=== PATIENT | male | born 1990 | race Caucasian/White ===

== ENCOUNTER 2017-05-01 05:10 | Emergency (ER) | payer OTHER ==
[2017-05-01] MEDS ORDERED: SODIUM CHLORIDE 0.9% 1,000 ML IV ONE (05:22)
[2017-05-01] MEDS ORDERED: diphenhydrAMINE INJ 50 MG/ML VIAL IVP STA (05:23)
[2017-05-01] MEDS ORDERED: METOCLOPRAMIDE 10 MG/2 ML VIAL IVP STA (05:23)
[2017-05-01] MEDS ORDERED: METOCLOPRAMIDE 10 MG/2 ML VIAL ONE (05:47)
[2017-05-01] MEDS ORDERED: diphenhydrAMINE INJ 50 MG/ML VIAL ONE (05:47)
--- NOTE | 2017-05-01 06:06 | ED Physician Documentation ---
PD HPI HEADACHE - Stated complaint Stated Complaint: HEADACHE,NAUSEA,DIZZY - Chief complaint Chief Complaint: Neuro - History obtained from History obtained from: Patient - History of Present Illness Timing - onset: How many days ago (2) Timing - details: Gradual onset, Still present Worst headache ever?: Worst headache ever? (no) Location: Front Quality: Aching Associated symptoms: Nausea. No: Fever, Stiff neck, Vomiting, Weakness, Syncope , Seizure Improved by: Rest, Dark room Contributing factors: No: Anticoagulated, Possible carbon monoxide, Recent illness Similar symptoms before: Work up / diagnostics, Treatment Recently seen: Not recently seen - Additional information Additional information: Patient is a 26 year old male presenting to the emergency department for headache. Patient states that he has migraines that he normally takes ibuprofen for. Patient states that for the last few days he has had a headache and felt a bit dizzy. Patient states that he tried taking ibuprofen but it didn 't work. Review of Systems Constitutional: denies: Fever, Chills, Myalgias Eyes: reports: Photophobia. denies: Loss of vision, Discharge, Irritation Ears: denies: Loss of hearing, Ear pain, Drainage/discharge, Foreign body Nose: reports: Sinus pressure / pain. denies: Rhinorrhea / runny nose, Congestion Throat: denies: Dental pain / toothache, Oral lesions / sores Cardiac: reports: Chest pain / pressure Respiratory: denies: Dyspnea, Cough, Wheezing GI: reports: Nausea. denies: Abdominal Pain, Vomiting, Constipation, Diarrhea : denies: Dysuria, Frequency, Hesitancy Skin: denies: Rash, Lesions Musculoskeletal: denies: Neck pain, Back pain, Extremity pain, Joint pain Neurologic: reports: Generalized weakness, Headache. denies: Focal weakness, Numbness, Syncope, Head injury, LOC Immunocompromised: denies: Immunocompromised PD PAST MEDICAL HISTORY - Past Medical History Past Medical History: Yes Endocrine/Autoimmune: Other Other Past Medical History: G6PD - Past Surgical History Past Surgical History: No - Allergies Allergies/Adverse Reactions: Allergies Allergy/AdvReac Type Severity Reaction Status Date / Time acetaminophen Allergy Severe Unknown Verified 05/01/17 05:29 - Social History Does the pt smoke?: No Smoking Status: Never smoker Does the pt drink ETOH?: Yes Does the pt have substance abuse?: No - Immunizations Immunizations are current?: Yes - POLST Patient has POLST: No PD ED PE NORMAL - Vitals Vital signs reviewed: Yes - General General: Alert and oriented X 3, No acute distress - HEENT HEENT: Atraumatic, PERRL, Moist mucous membranes, Pharynx benign, Dentition benign - Neck Neck: Supple, no meningeal sign, No bony TTP - Cardiac Cardiac: RRR, No murmur - Respiratory Respiratory: No respiratory distress, Clear bilaterally - Abdomen Abdomen: Soft, Non tender, Non distended - Derm Derm: Normal color, Warm and dry, No rash - Extremities Extremities: No deformity, No tenderness to palpate, Normal ROM s pain, No edema - Neuro Neuro: Alert and oriented X 3, 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 IV access was gained and patient was treated with fluids, reglan and benadryl. Departure - Departure Disposition: 01 Home, Self Care Clinical Impression: Headache Condition: Good Instructions: ED Cephalgia Unspecified Follow-Up: primary,care provider [Other] Comments: You should try to stay well hydrated and get plenty of rest over alexys next few days. You should follow up with your base doctor if your symptoms dont improve. You may return to the emergency department at any time for new, worsening or uncontrollable symptoms. Forms: Activity restrictions
[2017-05-01 06:45] VITALS: BP 122/73
== END 2017-05-01 06:45 | disposition home or self-care (01) ==
LOC: ED 05:10
DX: R51 Headache (principal); R11.2 Nausea with vomiting, unspecified; R42 Dizziness and giddiness
CPT/HCPCS: 96374; 96375; 99283

== ENCOUNTER 2018-03-02 18:49 | Emergency (ER) | payer OTHER ==
[2018-03-02 19:44] LABS: BILIRUBIN,URINE NEGATIVE (NEGATIVE); GLUCOSE, URINE (UA) NEGATIVE (NEGATIVE); KETONES,URINE (UA) NEGATIVE (NEGATIVE); LEUKOCYTE ESTERASE, URINE NEGATIVE (NEGATIVE); NITRITE,URINE NEGATIVE (NEGATIVE); OCCULT BLOOD,URINE TRACE-INTA (NEGATIVE); PROTEIN,URINE NEGATIVE (NEGATIVE); UROBILINOGEN,URINE 0.2 (NORMAL) E.U./dL (NORMAL)
[2018-03-02 19:45] LABS: CLARITY,URINE CLEAR (CLEAR)
--- NOTE | 2018-03-02 19:53 | ED Physician Documentation ---
History of Present Illness - Stated complaint Stated Complaint: MALE - Chief complaint Chief Complaint: General - History obtained from History obtained from: Patient, Family - History of Present Illness Timing: Other (6 months) Pain level max: 8 Pain level now: 7 Improved by: nothing Worsened by: palpation, walking, ejaculation - Additonal information Additional information: Patient is a 27-year-old male who presents to the emergency department with right testicular pain for the past 6 months. This been gradually worsening over that time. He did have intercourse with someone outside of his marriage just prior to symptoms starting. Concerned about possible STD exposure. He was seen at [facility] 3 days ago and started on Levaquin for possible epididymitis. States had laboratory testing and a ultrasound at that point which were normal per pt. Review of Systems Constitutional: denies: Fever, Chills Ears: denies: Ear pain Nose: denies: Rhinorrhea / runny nose, Congestion GI: denies: Nausea, Vomiting, Diarrhea : denies: Dysuria, Frequency, Hesitancy, Discharge, Testicular mass Skin: denies: Rash Musculoskeletal: denies: Neck pain, Back pain PD PAST MEDICAL HISTORY - Past Medical History Past Medical History: No Endocrine/Autoimmune: Other - Past Surgical History Past Surgical History: No - Present Medications Home Medications: Ambulatory Orders Medication Instructions Recorded Confirmed Doxycycline Hyclate 100 mg PO BID #20 tablet 03/02/18 Levofloxacin [Levaquin] 500 mg PO 03/02/18 oxyCODONE [Roxicodone] 5 mg PO Q4-6H PRN #10 tablet 03/02/18 - Allergies Allergies/Adverse Reactions: Allergies Allergy/AdvReac Type Severity Reaction Status Date / Time acetaminophen Allergy Severe Unknown Verified 03/02/18 18:54 - Social History Does the pt smoke?: No Smoking Status: Never smoker Does the pt drink ETOH?: Yes Does the pt have substance abuse?: No - Immunizations Immunizations are current?: Yes - POLST Patient has POLST: No PD ED PE NORMAL - Vitals Vital signs reviewed: Yes - General General: Alert and oriented X 3, No acute distress - HEENT HEENT: Moist mucous membranes - Neck Neck: Supple, no meningeal sign - Cardiac Cardiac: RRR - Respiratory Respiratory: No respiratory distress, Clear bilaterally - Abdomen Abdomen: Soft, Non tender, Non distended - Male Male : Other (Mild tenderness over the right epididymis. No testicular tenderness or swelling. No mass. No inguinal hernia present. No penile discharge. No inguinal lymphadenopathy. Normal testicular lie and cremasteric reflex) - Derm Derm: Warm and dry - Neuro Neuro: Alert and oriented X 3 Results - Vitals Vitals: Vital Signs - 24 hr 03/02/18 03/02/18 18:51 20:45 Temperature 36.8 C Heart Rate 74 99 Respiratory 16 20 Rate Blood Pressure 148/94 H 141/89 H O2 Saturation 99 96 Oxygen O2 Source Room air - Labs Labs: Laboratory Tests 03/02/18 19:40 Urine Color YELLOW Urine Clarity CLEAR Urine pH 6.0 Ur Specific [place] 1.025 Urine Protein NEGATIVE Urine Glucose (UA) NEGATIVE Urine Ketones NEGATIVE Urine Occult Blood TRACE-INTA Urine Nitrite NEGATIVE Urine Bilirubin NEGATIVE Urine Urobilinogen 0.2 (NORMAL) Ur Leukocyte Esterase NEGATIVE Ur Microscopic Review NOT INDICATED Urine Culture Comments NOT INDICATED PD MEDICAL DECISION MAKING - ED course Complexity details: reviewed results, re-evaluated patient, considered differential, d/w patient ED course: I did review the results from [facility] and confirmed the negative ultrasound. They did send a urine for gonorrhea and chlamydia. We will change his Levaquin to doxycycline and he was given a dose of Rocephin here. We will also prescribe pain medication for home. We will have him follow-up with his doctor for further evaluation and care. If he fails to improve, would likely need a urology referral. No evidence of intermittent torsion clinically. Patient counseled regarding signs and symptoms for which I believe and urgent re -evaluation would be necessary. Patient with good understanding of and agreement to plan and is comfortable going home at this time This document was made in part using voice recognition software. While efforts are made to proofread this document, sound alike and grammatical errors may occur. - Sepsis Event Vital Signs: Vital Signs - 24 hr 03/02/18 03/02/18 18:51 20:45 Temperature 36.8 C Heart Rate 74 99 Respiratory 16 20 Rate Blood Pressure 148/94 H 141/89 H O2 Saturation 99 96 Oxygen O2 Source Room air Departure - Departure Disposition: 01 Home, Self Care Clinical Impression: Testicular pain, right Condition: Good Instructions: ED Testicular Pain UKO Follow-Up: your,doctor in 3 days [Other] Prescriptions: Doxycycline Hyclate 100 mg PO BID #20 tablet oxyCODONE [Roxicodone] 5 mg PO Q4-6H PRN #10 tablet PRN Reason: pain Comments: Return if you worsen. The cause of your symptoms is unclear today. You should follow up with urology as well. Your primary care provider can refer you to urology. Stop the levaquin and start the doxycycline tomorrow. Do not drink alcohol or drive while on narcotic pain medicine. Note that many narcotic pain relievers also contain tylenol/acetaminophen. Please ensure that your total dose of acetaminophen from all sources does not exceed 3 grams (3000mg) per day. You may constipated on this medication, take a stool softener such as "Colace" twice a day while you are on it. Also recommend a plei-[id number] laxative such as senna or MiraLAX any day that you do not have a bowel movement. If you received narcotic pain medication in the emergency department, do not drive or operate machinery for the next 24 hours. Discharge Date/Time: 03/02/18 20:46
[2018-03-02] MEDS ORDERED: oxyCODONE 5 MG TABLET PO STA (19:57)
[2018-03-02] MEDS ORDERED: DOXYCYCLINE 100 MG TABLET PO STA (20:14)
[2018-03-02] MEDS ORDERED: LIDOCAINE 1% 2 ML VIAL SUBQ ONE (20:14)
[2018-03-02] MEDS ORDERED: cefTRIAXone 1 GM VIAL IM STA (20:14)
[2018-03-02 20:46] VITALS: BP 141/89
== END 2018-03-02 20:46 | disposition home or self-care (01) ==
LOC: ED 18:49
DX: N50.811 Right testicular pain (principal)
CPT/HCPCS: 81003; 96372; 99283; A9270; 81001; 87086

== ENCOUNTER 2018-07-19 16:07 | Emergency (ER) | payer OTHER ==
[2018-07-19 16:15] VITALS: BP 145/84
[2018-07-19] MEDS ORDERED: levoFLOXacin 250 MG TABLET PO STA (18:07)
--- NOTE | 2018-07-19 18:09 | ED Physician Documentation ---
History of Present Illness - Stated complaint Stated Complaint: MALE /COUGH - Chief complaint Chief Complaint: General - History obtained from History obtained from: Patient - History of Present Illness Timing: Other (In February he had epididymitis. He says he did recover completely after a course of Levaquin which was 6 twisted doxycycline. He was tested several times for STDs, all of them were negative. Over the last week he has had gradual onset mild Right testicular pain that is worse with walking. He has not nauseous. He denies abdominal pain. He also has a nonproductive cough for the last 4 days without fevers.) Review of Systems Ten Systems: 10 systems reviewed and negative Constitutional: denies: Fever, Chills Cardiac: denies: Chest pain / pressure, Palpitations Respiratory: denies: Dyspnea, Cough GI: denies: Abdominal Pain, Nausea, Vomiting PD PAST MEDICAL HISTORY - Past Medical History Endocrine/Autoimmune: Other - Past Surgical History Past Surgical History: No - Present Medications Home Medications: Ambulatory Orders Medication Instructions Recorded Confirmed Levofloxacin [Levaquin] 500 mg PO DAILY #14 tablet 07/19/18 - Allergies Allergies/Adverse Reactions: Allergies Allergy/AdvReac Type Severity Reaction Status Date / Time acetaminophen Allergy Severe Unknown Verified 07/19/18 16:15 - Social History Does the pt smoke?: No Smoking Status: Never smoker Does the pt drink ETOH?: Yes Does the pt have substance abuse?: No - Immunizations Immunizations are current?: Yes - POLST Patient has POLST: No PD ED PE NORMAL - Vitals Vital signs reviewed: Yes - General General: Alert and oriented X 3, No acute distress - Neck Neck: Supple, no meningeal sign, No bony TTP - Cardiac Cardiac: RRR, No murmur - Respiratory Respiratory: No respiratory distress, Clear bilaterally - Abdomen Abdomen: Normal bowel sounds, Soft, Non tender - Male Male : Other (Mild R testicular TTP but no swelling. Normal cremaster reflexes, normal lie. No hernia.) - Neuro Neuro: Alert and oriented X 3 Results - Vitals Vitals: Vital Signs - 24 hr 07/19/18 16:12 Temperature 36.1 C L Heart Rate 68 Respiratory 18 Rate Blood Pressure 145/84 H O2 Saturation 99 Oxygen O2 Source Room air PD MEDICAL DECISION MAKING - ED course ED course: 27-year-old gentleman with recurrent epididymitis. He has had a confirmatory ultrasound in the past per him. Pain is mild. Otherwise inconsistent with torsion. Departure - Departure Disposition: 01 Home, Self Care Clinical Impression: Acute epididymitis Condition: Good Record reviewed to determine appropriate education?: Yes Instructions: Epididymitis Dc Prescriptions: Levofloxacin [Levaquin] 500 mg PO DAILY #14 tablet Comments: Call your doctor to arrange a follow-up appointment, make the next available appointment. In the interim, return anytime if worse or if new symptoms develop. Your blood pressure was elevated today on check into the emergency department. This does not mean that you have hypertension, it is a common phenomenon to come to the emergency department and have elevated blood pressure. I recommend that you see your primary care physician within the week to have it rechecked when you are feeling better.
== END 2018-07-19 18:18 | disposition home or self-care (01) ==
LOC: ED 16:07
DX: N45.1 Epididymitis (principal); R03.0 Elevated blood-pressure reading, without diagnosis of hypertension
CPT/HCPCS: 99283; A9270

== ENCOUNTER 2019-09-10 10:56 | Emergency (ER) | payer OTHER ==
[2019-09-10 11:04] VITALS: BP 171/95
--- NOTE | 2019-09-10 12:53 | ED Physician Documentation ---
History of Present Illness - Stated complaint Stated Complaint: COUGH/SINUS PRESSURE - Chief complaint Chief Complaint: General - History obtained from History obtained from: Patient - History of Present Illness Timing: Yesterday (Started coughing yesterday and today has had fevers chills and body aches as well as congestion and retro-orbital headache. No recent travel. No health, conditions except for G6PD deficiency.) Review of Systems Constitutional: reports: Chills, Myalgias, Fatigue. denies: Fever Ears: denies: Ear pain Nose: reports: Rhinorrhea / runny nose Throat: denies: Sore throat Respiratory: reports: Cough. denies: Dyspnea GI: denies: Nausea, Diarrhea PD PAST MEDICAL HISTORY - Past Medical History Endocrine/Autoimmune: Other - Past Surgical History Past Surgical History: No - Present Medications Home Medications: Ambulatory Orders Medication Instructions Recorded Confirmed Levofloxacin [Levaquin] 500 mg PO DAILY #14 tablet 07/19/18 Ibuprofen [Motrin] 800 mg PO Q8H PRN #30 tablet 09/10/19 - Allergies Allergies/Adverse Reactions: Allergies Allergy/AdvReac Type Severity Reaction Status Date / Time acetaminophen Allergy Severe Unknown Verified 09/10/19 11:00 - Social History Does the pt smoke?: No Smoking Status: Never smoker Does the pt drink ETOH?: Yes Does the pt have substance abuse?: No - Immunizations Immunizations are current?: Yes - POLST Patient has POLST: No PD ED PE NORMAL - Vitals Vital signs reviewed: Yes - General General: Alert and oriented X 3, No acute distress - HEENT HEENT: PERRL, EOMI, Ears normal, Moist mucous membranes, Pharynx benign - Neck Neck: Supple, no meningeal sign, No bony TTP, No adenopathy - Cardiac Cardiac: RRR, No murmur - Respiratory Respiratory: No respiratory distress, Clear bilaterally - Abdomen Abdomen: Non tender - Back Back: No CVA TTP, No spinal TTP - Derm Derm: Normal color, Warm and dry - Neuro Neuro: Alert and oriented X 3, Normal speech Results - Vitals Vitals: Vital Signs - 24 hr 09/10/19 11:00 Temperature 37.2 C Heart Rate 97 Respiratory 16 Rate Blood Pressure 171/95 H O2 Saturation 98 Oxygen O2 Source Room air PD MEDICAL DECISION MAKING - ED course ED course: This is a 28-year-old gentleman, 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 I discussed with him my practice pattern of not testing or treating for the flu and young healthy people as the risk-benefit ratio of antiviral agents for uncomplicated influenza is at best at a position of equipoise. He is comfortable with this and mostly needs a work note. Departure - Departure Disposition: 01 Home, Self Care Clinical Impression: Viral syndrome Condition: Good Record reviewed to determine appropriate education?: Yes Instructions: ED Viral Syndrome Prescriptions: Ibuprofen [Motrin] 800 mg PO Q8H PRN #30 tablet PRN Reason: PAIN &/OR FEVER Comments: Call your doctor to arrange a follow-up appointment, make the next available appointment. In the interim, return anytime if worse or if new symptoms develop. Forms: Activity restrictions Discharge Date/Time: 09/10/19 13:05
== END 2019-09-10 13:05 | disposition home or self-care (01) ==
LOC: ED 10:56
DX: B34.9 Viral infection, unspecified (principal)
CPT/HCPCS: 99282; 99284

== ENCOUNTER 2020-10-31 21:36 | Outpatient (CLI) | payer OTHER | END 2020-10-31 21:37 | disposition home or self-care (01) | LOC: COV 21:36 | PROVIDERS: ATTEND Surgery | DX: Z01.812 Encounter for preprocedural laboratory examination (principal); L05.91 Pilonidal cyst without abscess; Z20.822 Contact with and (suspected) exposure to COVID-19 ==

== ENCOUNTER 2020-11-03 06:23 | Day surgery (SDC) | payer OTHER ==
[2020-11-03] MEDS ORDERED: ceFAZolin 2 GM/50 ML 2 GM/50 ML BAG IV ONE (07:04)
[2020-11-03] MEDS ORDERED: BUPIVACAINE 0.25% PF 30 ML VIAL ONE (07:05)
[2020-11-03] MEDS ORDERED: BUPIVACAINE 0.25% PF 30 ML VIAL SUBQ ONE ×2 (07:09→09:14)
[2020-11-03] MEDS ORDERED: KETOROLAC 30 MG/ML VIAL ONE (07:11)
[2020-11-03] MEDS ORDERED: LIDOCAINE-MPF 2% 5 ML VIAL ONE (07:11)
[2020-11-03] MEDS ORDERED: ONDANSETRON 4 MG/2 ML VIAL ONE ×2 (07:11→11:03)
[2020-11-03] MEDS ORDERED: PROPOFOL 200 MG/20 ML VIAL IVP ONE ×2 (07:11→08:00)
[2020-11-03] MEDS ORDERED: DEXAMETHASONE 4 MG/ML VIAL ONE (07:11)
[2020-11-03] MEDS ORDERED: MIDAZOLAM 2 MG/2 ML VIAL ONE (07:11)
[2020-11-03] MEDS ORDERED: fentaNYL 100 MCG/2 ML VIAL ONE ×2 (07:11→08:05)
[2020-11-03] MEDS ORDERED: SUCCINYLCHOLINE 200 MG/10 ML VIAL ONE (07:12)
--- NOTE | 2020-11-03 07:23 | ANESTHESIA ---
Pre-Anesthesia VS, & Labs - Diagnosis pilonidal cyst - Procedure Pilonidal cystectomy Vital Signs: Temp Pulse Resp BP Pulse Ox 36.2 C L 85 16 145/85 H 96 11/03/20 06:54 11/03/20 06:54 11/03/20 06:54 11/03/20 06:54 11/03/20 06:54 Height: 5 ft 10 in Weight (kg): 110.8 kg Body Mass Index: 35.0 BMI Classification: Obese - NPO >8 hours - Lab Results Lab results reviewed: Yes Home Medications and Allergies Home Medications: Ambulatory Orders Clobetasol Propionate [Temovate] 1 applic TP PRN PRN 10/27/20 hydrOXYzine HCL [Hydroxyzine HCl] 25 mg PO QID PRN 10/27/20 Clobetasol Propionate [Temovate] 1 applic TP PRN PRN 10/27/20 hydrOXYzine HCL [Hydroxyzine HCl] 25 mg PO QID PRN 10/27/20 Allergies/Adverse Reactions: Allergies Allergy/AdvReac Type Severity Reaction Status Date / Time acetaminophen Allergy Severe Unknown Verified 09/10/19 11:00 Anes History & Medical History - Anesthetic History Anesthesia Complications: reports: No previous complications Family history of Anesthesia Complications: Denies Family history of Malignant Hyperthermia: Denies - Medical History Cardiovascular: reports: None Pulmonary: reports: None Gastrointestinal: reports: None Urinary: reports: None Musculoskeletal: reports: None Endocrine/Autoimmune: reports: Other Skin: reports: Eczema Smoking Status: Never smoker Other Past Medical History: G6PD with anemia Exam General: Alert, Oriented x3, Cooperative, No acute distress Dental: WNL Mouth Openin Fingerbreadth Neck Mobility: Normal Mallampati classification: II Respiratory: Lungs clear, Normal breath sounds, No respiratory distress, No accessory muscle use Cardiovascular: Regular rate, Normal S1, Normal S2, No murmurs Plan Anesthesia Type: General Consent for Procedure(s) Verified and Reviewed: Yes Code Status: Attempt Resuscitation ASA classification: 2-Mild systemic disease Is this case an emergency?: No
[2020-11-03] MEDS ORDERED: ePHEDrine 50 MG/ML VIAL IVP PRN (07:24)
[2020-11-03] MEDS ORDERED: METOCLOPRAMIDE 10 MG/2 ML VIAL IVP PRN (07:24)
[2020-11-03] MEDS ORDERED: MORPHINE 2 MG/ML CARPUJECT IVP PRN (07:24)
[2020-11-03] MEDS ORDERED: HYDROmorphone 0.5 MG/0.5 ML SYRINGE IVP PRN ×2 (07:24→09:55)
[2020-11-03] MEDS ORDERED: NALOXONE 0.4 MG/ML VIAL IVP PRN (07:24)
[2020-11-03] MEDS ORDERED: ATROPINE ABBOJECT 1 MG/10 ML SYRINGE IVP PRN (07:24)
[2020-11-03] MEDS ORDERED: ONDANSETRON 4 MG/2 ML VIAL IVP PRN ×2 (07:24→09:55)
[2020-11-03] MEDS ORDERED: fentaNYL 100 MCG/2 ML VIAL IVP PRN (07:24)
[2020-11-03] MEDS ORDERED: LACTATED RINGERS 1,000 ML IV SCH (08:00)
--- NOTE | 2020-11-03 09:47 | OPERATIVE REPORT ---
Operative Report - General Procedure Date: 11/03/20 Planned Procedure: 1. Pilonidal cystectomy 2. Wound washout 3. Rhomboid rotational reconstructive flap 4. Drain placement Pre-Op Diagnosis: Chronic recurrent pilonidal cyst; H/O prior I&D, multiple Procedure Performed: 1. Pilonidal cystectomy 2. Wound washout 3. Rhomboid rotational reconstructive flap 4. Drain placement Post Op Diagnosis: Same; Viable rhomboid rotational flap; no active infection - Procedure Note Primary Surgeon: Ja Secondary Surgeon: [place] Anesthesia Provider: Kirk Anesthesia Technique: General ET tube, Local Pathology: Pilonidal Cyst Estimated Blood Loss (mL): 20 Drain/Tube Type: Madi drain Indications: Recurrent pilonidal cyst/abscess. Findings: 1. Chronic scar tissue within cystic structure in the left superior lateral aspect of the gluteal cleft/sacrum. 2. Pilonidal sinus tract excised en bloc with area of chronic scar/fibrosis. 3. Rhomboid rotational flap harvested from the right buttock 4. Viable flap with no ischemic compromise. Complications: None - Other Other Information/Narrative: See pending operative note.
[2020-11-03] MEDS ORDERED: LACTATED RINGERS 1,000 ML IV ONE (10:03)
[2020-11-03] MEDS ORDERED: METOCLOPRAMIDE 10 MG/2 ML VIAL ONE (10:48)
[2020-11-03] MEDS: LACTATED RINGERS 1,000 ML IV SCH ×2 (12:00→15:42)
[2020-11-03] MEDS: oxyCODONE 5 MG TABLET PO PRN (12:02)
--- NOTE | 2020-11-03 15:02 | ANESTHESIA POST OP EVALUATION ---
Anesthesia Post Eval - Post Anesthesia Eval Vitals: Last Vital Signs Temp 36.8 C 11/03/20 12:20 Pulse 90 11/03/20 12:20 Resp 18 11/03/20 12:20 BP 112/70 11/03/20 12:20 Pulse Ox 97 11/03/20 12:20 CV Function Including HR & BP: positive: Stable Pain Control: positive: Satisfactory Nausea & Vomiting: positive: Negative Mental Status: positive: Patient Participates Respiratory Status: Airway Patent Hydration Status: Satisfactory Anesthesia Complications: positive: None
[2020-11-04] MEDS: LACTATED RINGERS 1,000 ML IV SCH (01:47)
[2020-11-04] MEDS: oxyCODONE 5 MG TABLET PO PRN (01:51)
[2020-11-04 08:16] VITALS: BP 136/79
== END 2020-11-04 08:45 | disposition home or self-care (01) ==
LOC: SDS 06:23 → MS2 11:12 → SDS 11-04 08:45
PROVIDERS: ATTEND Surgery
PROC: 0HX8XZZ Transfer Buttock Skin, External Approach (ICD-10-PCS; 2020-11-03)
PROC: 0JB90ZZ Excision of Buttock Subcutaneous Tissue and Fascia, Open Approach (ICD-10-PCS; principal; 2020-11-03 07:30)
DX: L05.91 Pilonidal cyst without abscess (principal); E66.9 Obesity, unspecified; Z68.35 Body mass index [BMI] 35.0-35.9, adult
CPT/HCPCS: 11772; 14301; 14302; A9270; J0330; J0690; J2765; J7120

== ENCOUNTER 2020-12-28 20:45 | Emergency (ER) | payer OTHER ==
--- NOTE | 2020-12-29 00:09 | ED Physician Documentation ---
History of Present Illness - Stated complaint Stated Complaint: LT LEG PX & SWELLING - Chief complaint Chief Complaint: Ext Problem - History obtained from History obtained from: Patient - History of Present Illness Timing: How many days ago (3-4) Pain level now: 3 Improved by: nothing Worsened by: palpation - Additonal information Additional information: c/o atraumatic left pretibial painful focal red swelling x 3-4 days. denies h/o similar symptoms Review of Systems Constitutional: reports: Reviewed and negative Skin: reports: Lesions Musculoskeletal: reports: Reviewed and negative PD PAST MEDICAL HISTORY - Past Medical History Cardiovascular: None Respiratory: None Endocrine/Autoimmune: Other GI: None : None HEENT: None Psych: Claustrophobia Musculoskeletal: None Derm: Eczema - Past Surgical History Past Surgical History: No - Present Medications Home Medications: Ambulatory Orders Medication Instructions Recorded Confirmed No Known Home Medications 12/28/20 12/28/20 - Allergies Allergies/Adverse Reactions: Allergies Allergy/AdvReac Type Severity Reaction Status Date / Time acetaminophen Allergy Severe Unknown Verified 09/10/19 11:00 - Social History Does the pt smoke?: No Smoking Status: Never smoker Does the pt drink ETOH?: Yes Does the pt have substance abuse?: No - Immunizations Immunizations are current?: Yes - POLST Patient has POLST: No PD ED PE NORMAL - Vitals Vital signs reviewed: Yes - General General: Alert and oriented X 3, No acute distress, Well developed/nourished - Extremities Extremities: Normal ROM s pain, No edema - Neuro Neuro: No motor deficit, No sensory deficit PD ED PE EXPANDED - Extremities TALIB LE visual: 1 - swelling (minimally raised, poorly maeginated erythema without confluence. not hot to touch, no fluctuance, minimal tenderness to palpation,) Results - Vitals Vitals: Oxygen O2 Source Room air PD MEDICAL DECISION MAKING - ED course Complexity details: considered differential, d/w patient ED course: solitary LLE pretibial lesion, erythematous but faint margins, minimally raised, lack of confluence, not fluctuant nor firm to touch. doubt cellulitis, and s olitary lesion makes erythema nodosum unlikely. no emergent testing indicted at this time, encouraged to follow up with PMD for reevaluation in next few days Departure - Departure Disposition: 01 Home, Self Care Clinical Impression: Leg pain Qualifiers: Laterality: left Qualified Code(s): M79.605 - Pain in left leg Condition: Good Instructions: ED Leg Swelling Unilateral, ED Symptoms No Dx Discharge Date/Time: 12/29/20 00:32
[2020-12-29 00:33] VITALS: BP 139/79
--- NOTE | 2020-12-29 09:03 | Ultrasound Report ---
PROCEDURE: Duplex Ext Veins Left INDICATIONS: LLE swelling 1 week post op TECHNIQUE: Real-time imaging, as well as color and pulse Doppler interrogation, were performed of the lower extr emity deep veins from the inguinal ligament to the popliteal fossa. COMPARISON: None. FINDINGS: The deep veins are normally compressible, and free of intraluminal thrombus. Color and pu lse Doppler demonstrate normal phasic intraluminal flow. There is normal augmentation response to di stal compression maneuver. IMPRESSION: No evidence of deep vein thrombosis involving the left lower extremity. Reviewed by: Gill Arce MD, PhD on 12/29/2020 9:01 AM PDT Approved by: Gill Arce MD, PhD on 12/29/2020 9:01 AM PDT Station ID: [id number]
== END 2020-12-29 00:32 | disposition home or self-care (01) ==
LOC: ED 20:45
DX: M79.605 Pain in left leg (principal)
CPT/HCPCS: 99283; 99284

== ENCOUNTER 2022-10-17 17:38 | Outpatient (CLI) | payer OTHER ==
--- NOTE | 2022-10-18 09:29 | MRI Report ---
PROCEDURE: BRAIN WO INDICATIONS: DIZZINESS TECHNIQUE: Noncontrast axial T1 spin echo, axial T2 fast spin echo, sagittal and axial FLAIR, coronal T2 fast sp in echo, axial gradient echo, axial diffusion and ADC through the brain. COMPARISON: None. FINDINGS: Image quality: Excellent. CSF Spaces: Basal cisterns are patent. No extra-axial fluid collections. Ventricles are normal in size and shape. Brain: No intracranial masses or acute hemorrhage. There is a 15 mm diameter region of low-grade ec ho signal intensity within the right frontoparietal lobe junction, suggestive of a focus of remote he morrhage. Hagan/white matter interface is normal. Brainstem appears normal. Diffusion-weighted image s demonstrate no acute ischemic insult. No chronic ischemic insults. Normal intravascular flow void s are present. Skull and face: Calvarium has normal marrow signal. Orbits appear normal. Sinuses: Small right maxillary sinus retention cyst. Sinuses and mastoids are otherwise clear. IMPRESSION: 1. No acute process. No recent infarct. 2. 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 Reviewed by: Migue Martinez MD on 10/18/2022 9:28 AM PST Approved by: Migue Martinez MD on 10/18/2022 9:28 AM PST Station ID: [id number]
== END 2022-10-17 17:39 | disposition home or self-care (01) ==
LOC: DI 17:38
PROVIDERS: ATTEND Psychiatry & Neurology Neurology
DX: R42 Dizziness and giddiness (principal); R55 Syncope and collapse; H91.91 Unspecified hearing loss, right ear; M54.81 Occipital neuralgia

== ENCOUNTER 2023-04-13 20:53 | Emergency (ER) | payer OTHER ==
[2023-04-13] MEDS ORDERED: ALBUTEROL 1 PUFF INH STA (21:21)
--- NOTE | 2023-04-13 21:25 | ED Physician Documentation ---
History of Present Illness - Stated complaint Stated Complaint: COUGH,CHEST PX - Chief complaint Chief Complaint: Resp - Additonal information Additional information: 32-year-old male presents emergency department for evaluation of cough that has worsened since recently returning from [place]. 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 He has seen [employer] [facility] and's been told that he has allergies though the patient does not take any allergy medication. He does have some congestion and often has postnasal drip. He is not a smoker. This current cough is worse when taking deep breaths. This is dry and nonproductive. Covid 19 vaccination utd. no fevers. Review of Systems Constitutional: denies: Fever Nose: reports: Congestion Throat: reports: Reviewed and negative Cardiac: reports: Reviewed and negative Respiratory: reports: Cough. denies: Hemoptysis, Wheezing GI: reports: Reviewed and negative : reports: Reviewed and negative Skin: reports: Reviewed and negative PD PAST MEDICAL HISTORY - Past Medical History Past Medical History: Yes Cardiovascular: None Respiratory: None Endocrine/Autoimmune: Other GI: None : None HEENT: None Psych: Claustrophobia Musculoskeletal: None Derm: Eczema - Past Surgical History Past Surgical History: No - Present Medications Home Medications: Ambulatory Orders Medication Instructions Recorded Confirmed Albuterol Sulf [Ventolin Hfa 1 - 2 puffs INH Q4HR PRN #1 each 04/13/23 Inhaler] Benzonatate [Tessalon] 200 mg PO TID PRN #20 cap 04/13/23 - Allergies Allergies/Adverse Reactions: Allergies Allergy/AdvReac Type Severity Reaction Status Date / Time acetaminophen Allergy Severe Unknown Verified 04/13/23 21:08 - Social History Does the pt smoke?: No Smoking Status: Never smoker Does the pt drink ETOH?: Yes Does the pt have substance abuse?: No - Immunizations Immunizations are current?: Yes - POLST Patient has POLST: No PD ED PE NORMAL - General General: Alert and oriented X 3, No acute distress - HEENT HEENT: Atraumatic, Moist mucous membranes. No: Pharynx benign (Posterior oropharynx erythema. Chronically enlarged appearing tonsils. Uvula is midline. Normal phonation normal swallow) - Neck Neck: Supple, no meningeal sign, No adenopathy - Cardiac Cardiac: RRR - Respiratory Respiratory: No respiratory distress, Clear bilaterally, Other (Deep breath initiates a cough.) - Derm Derm: Warm and dry - Extremities Extremities: No deformity - Neuro Neuro: Alert and oriented X 3 Eye Opening: Spontaneous Motor: Obeys Commands Verbal: Oriented GCS Score: 15 Results - Vitals Vitals: Vital Signs - 24 hr 04/13/23 21:03 Temperature 36.7 C Heart Rate 80 Respiratory 15 Rate Blood Pressure 147/71 H O2 Saturation 96 Oxygen O2 Source Room air - Rads (name of study) cxr Relevant Findings:: EMP independent interpretation of test (No acute cardiopulmonary findings) PD Medical Decision Making - ED course Complexity details: reviewed results, re-evaluated patient, considered differential, d/w patient ED course: 32-year-old male here with chronic cough now for 7 years. Worse after recently returning from [place] and entering local air quality which is poor. Cardiopulmonary auscultation was unremarkable without adventitious breath sounds. Room air saturations were normal. However deep breath did cause him to cough. I suspect he may have a mild reactive airway disease component. Patient was administered 4 puffs of albuterol. A chest x-ray is interpreted by myself did not show any acute worrisome findings. Respiratory PCR panel is pending. There is also concern that this patient could have chronic undertreated allergies. We discussed daily nasal rinses followed by Flonase as well as Zyrtec. If these usual conservative care measures do not improve the quality of his daily cough he may benefit from referral to GI for consideration of an EGD for possible silent acid reflux. Patient is discharged home in stable condition with usual emergent return precautions discussed for worsening symptoms Departure - Departure Disposition: 01 Home, Self Care Clinical Impression: Chronic coughing Condition: Stable Record reviewed to determine appropriate education?: Yes Prescriptions: Albuterol Sulf [Ventolin Hfa Inhaler] 1 - 2 puffs INH Q4HR PRN #1 each PRN Reason: Shortness Of Air/Wheezing Benzonatate [Tessalon] 200 mg PO TID PRN #20 cap PRN Reason: Cough Comments: Jose Carlos you have been having a cough for 7 years. I think it is possible that you do have undertreated allergies or postnasal drip. Recommend doing saline nasal rinse in the shower each morning followed by Flonase nasal spray. This will help reduce congestion and postnasal drip. You should also begin taking a daily allergy medicine such as Zyrtec. We did give you some albuterol today in the emergency department. I would recommend that you use this 3-4 times a day for the next several days to see if it improves your cough. Even though you are not wheezy you could be having some mild bronchospasm associated with local poor air quality. Your chest x-ray did not show any worrisome findings. Is important you continue a trial and error approach to your chronic cough. If adequately treating allergies does not seem to squelch the cough, you may benefit from referral to GI to discuss if you could be having silent acid reflux, especially at night that could be contributing to your symptoms. In that case you would need to get an EGD completed. Return to the ER for any worsening symptoms, sudden severe chest pain or shortness of air. We did screen you for common respiratory viral illnesses. These results should be available later tonight on the [email or web address] portal we will only notify you if you are positive for COVID-19.
--- NOTE | 2023-04-13 21:48 | XRAY Report ---
PROCEDURE: Chest 1 View X-Ray INDICATIONS: chest pain TECHNIQUE: One view of the chest was acquired. COMPARISON: None. FINDINGS: Surgical changes and devices: None. Lungs and pleura: No pleural effusions or pneumothorax. Lungs are clear. Mediastinum: Mediastinal contours appear normal. Heart size is normal. Bones and chest wall: No suspicious bony lesions. Overlying soft tissues appear unremarkable. IMPRESSION: No acute cardiopulmonary process. Reviewed by: Derrick Barnett MD on 04/13/2023 9:47 PM PDT Approved by: Derrick Barnett MD on 04/13/2023 9:47 PM PDT Station ID: [id number]
[2023-04-13 22:11] VITALS: BP 123/73; O2SAT 98
[2023-04-13 22:31] LABS: CORONAVIRUS 229E-RESP PCR NOT DETECTED; CORONAVIRUS HKU1-RESP PCR NOT DETECTED; CORONAVIRUS NL63-RESP PCR NOT DETECTED; CORONAVIRUS OC43-RESP PCR NOT DETECTED
[2023-04-13 22:32] LABS: B. PARAPERTUSSIS- RESP PCR PAN NOT DETECTED; B. PERTUSSIS- RESP PCR PANEL NOT DETECTED; C. PNEUMONIAE- RESP PCR PANEL NOT DETECTED; HUMAN METAPNEUMOVIRUS NOT DETECTED; INFLUENZA A- RESP PCR PANEL NOT DETECTED; INFLUENZA B - RESP PCR PANEL NOT DETECTED; M. PNEUMONIAE- RESP PCR PANEL NOT DETECTED; PARAINFLUENZA VIRUS 1 NOT DETECTED; PARAINFLUENZA VIRUS 2 NOT DETECTED; PARAINFLUENZA VIRUS 3 NOT DETECTED; PARAINFLUENZA VIRUS 4 NOT DETECTED; RHINOVIRUS/ENTEROVIRUS NOT DETECTED; RSV- RESP PCR PANEL NOT DETECTED; SARS-CoV-2 -RESP PCR PANEL DETECTED
== END 2023-04-13 22:04 | disposition home or self-care (01) ==
LOC: ED 20:53
DX: U07.1 COVID-19 (principal); R05.3 Chronic cough
CPT/HCPCS: 87633; 94640; 99284